=== PATIENT | male | born 1955 | race Caucasian/White ===

== ENCOUNTER 2016-08-31 11:38 | Observation (INO) | payer BC, OTHER ==
[2016-08-31] VITALS (9 sets, daily range): BP systolic 117–182; BP diastolic 57–94; PULSE 48–69; RESP 16–20; TEMP 97.5–98.2; O2SAT 94–99
[~2016-08-31] VITALS: Ht 193 cm; Wt 109.1 kg
[~2016-08-31 11:38] MED LIST: ASPI81 PO; ISOS30 PO; LEVO150T46 PO; NITR.4 SL; TOPR25TA2 PO; ZOCO80TA PO
[2016-08-31] MEDS ORDERED: SODIUM CHLORIDE 0.9% FLUSH 5 ML FLUSH IVF PRN ×2 (12:00→14:45)
[2016-08-31] MEDS ORDERED: ASPIRIN 325 MG TAB PO ONE (12:00)
[2016-08-31] MEDS ORDERED: NITROGLYCERIN 0.4 MG SL 25 TABS/BTL SL ONE (12:00)
--- NOTE | 2016-08-31 12:03 | PD ---
HPI Chief Complaint: Chest Pain Time Seen by Provider: 11:59 Travel History International Travel<30 days: No Contact w/Intl Traveler<30days: No Traveled to known affect area: No History of Present Illness HPI 61-year-old male that presents to the ED for evaluation of chest pain for over one hour. Per patient the pain is constant but comes and goes. Per patient gets to be severe 7 out of 10. Per patient and just some shortness of breath. Per patient he is also diaphoretic. He has a history of AZ in the past with 2 stents. Patient states that he takes an aspirin every day. Patient follows with student financial services counselor Dr. Rivera. States that the last time he had any stenting done was in 2011. States that he did go to [place] about a month ago but has had no problems since. Per patient he had to work extra at this weekend and yesterday he was feeling weak and tired because of the extra work and today he woke up with dizziness feeling lightheaded. Per patient he continued to work even though he felt dizzy and never passed out or did have any neurological deficits until about an hour ago when he developed a severe chest pain. Per patient feels similar to his prior events. He has not taken anything for this. He has no allergies to medication. Pain does not radiate. Pain stays mainly in the mid chest. He does state having some shortness of breath. States that he has a history of blood pressure problems. PFSH Past Medical History Cancer: No Cardiac Catheterization: Yes Cardiovascular Problems: Yes (AZ in 2006 & 2013) High Cholesterol: Yes Diabetes: No Diminished Hearing: No Glaucoma: No Hepatitis: No Hiatal Hernia: No Hypertension: Yes Respiratory: Yes (PNEUMONIA 2005) Thyroid Disease: Yes Past Surgical History Abdominal Surgery: Yes (APPENDECTOMY) Pacemaker: No Thoracic Surgery: Yes (ANGIOPLASTY WITH STENT) Other Surgery: Yes Social History Alcohol Use: Yes ([employer]) Tobacco Use: Yes (1 PK/DAY) Substance Use: No Allergies-Medications (Allergen,Severity, Reaction): Coded Allergies: No Known Allergies (Verified , 08/31/16) Reported Meds & Prescriptions Reported Meds & Active Scripts Active Reported Levothyroxine (Levothyroxine Sodium) 175 Mcg Tab 175 Mcg PO SUTUWETHFRSA Take 1 tablet daily except on Mondays Doxazosin (Doxazosin Mesylate) 1 Mg Tab 1 Mg PO DAILY Prozac (Fluoxetine HCl) 20 Mg Cap 20 Mg PO DAILY Pantoprazole (Pantoprazole Sodium) 40 Mg Tab 40 Mg PO DAILY Aspirin 81 Mg Tabdr 81 Mg PO HS Review of Systems General / Constitutional: No: Fever, Chills, Weight Gain, Weight Loss, Other Eyes: No: Diploplia, Blurred Vision, Photophobia, Drainage, Redness, Foreign Body Sensation, Pain, Tearing, Blind Spots, Visual changes, Blindness, Other HENT: No: Headaches, Vertigo, Lightheadedness, Sore Throat, Rhinitis, Rhinorrhea, Congestion, Nosebleed, Neck Stiffness, Neck Pain, Masses, Gingival Bleeding, Dental Difficulties, Ear Discharge, Earache, Other Cardiovascular: Positive: Chest Pain or Discomfort, Diaphoresis, No: Palpitations, Irregular Rhythm, Tachycardia, Syncope, Dyspnea on exertion, Varicosities, Edema, Cyanosis, Varicosities, Phlebitis, Claudication, Other Respiratory: Positive: Shortness of Breath, No: Cough, Wheezing, Sneezing, Orthopnea, Hemoptysis, Stridor, Night Sweats, Pleuritic Pain, Other Gastrointestinal: No: Nausea, Vomiting, Diarrhea, Abdominal Pain, Hematemesis, Hematochezia, Constipation, Changes in Bowel Habits, Indigestion, Dysphagia, Loss of Appetite, Other Genitourinary: No: Urgency, Frequency, Dysuria, Nocturia, Hematuria, Decreased Urinary Output, Oliguria, Hesitancy, Dribbling, Incontinence, Pelvic Pain, Flank Pain, Dyspareunia, Discharge, Dysmenorrhea, Menorrhagia, Metorrhagia, Vaginal Bleeding, Other Musculoskeletal: No: Myalgias, Arthralgias, Limited ROM, Weakness, Cramping, Edema, Pain, Atrophy, Other Skin: No Rash, No Itching, No Dryness, No Lumps, No Hives, No Change in Pigmentation, No Change in nails, No Alopecia, No Lesions, No Breast Lumps, No Breast Tenderness, No Breast Swelling, No Other Neurologic: Positive: Dizziness, No: Weakness, Syncope, Focal Abnormalities, Coordination Problem, Tremor, Ataxia, Headache, Change in Mentation, Slurred Speech, Paresthesia, Incontinence, Seizures, Sensory Disturbance, Other Psychiatric: No: Anxiety, Depression, Suicidal Ideations, Disorder of Thought, Mood Disorder, Substance Abuse, Homicidal Ideation, Other Endocrine: No: Heat Intolerance, Cold Intolerance, Polyuria, Polydipsia, Other Hematologic/Lymphatic: No: Easy Bruising, Lymph Node Enlargement, Other Physical Exam Narrative GENERAL: SKIN: Warm and dry. HEAD: Atraumatic. Normocephalic. EYES: Pupils equal and round. No scleral icterus. No injection or drainage. ENT: No nasal bleeding or discharge. Mucous membranes pink and moist. Tongue is midline. No uvula deviation. NECK: Trachea midline. No JVD. CARDIOVASCULAR: Regular rate and rhythm. No murmurs, S3, S4. RESPIRATORY: No accessory muscle use. Clear to auscultation. Breath sounds equal bilaterally. GASTROINTESTINAL: Abdomen soft, non-tender, nondistended. Hepatic and splenic margins not palpable. MUSCULOSKELETAL: Extremities without clubbing, cyanosis, or edema. No obvious deformities. Full range of motion of the upper and lower extremities bilaterally. 2+ pulses bilaterally. NEUROLOGICAL: Awake and alert. No obvious cranial nerve deficits. Motor grossly within normal limits. Five out of 5 muscle strength in the arms and legs. Normal speech. PSYCHIATRIC: Appropriate mood and affect; insight and judgment normal. Data Data Last Documented VS Vital Signs Date Time Temp Pulse Resp B/P Pulse Ox O2 Delivery O2 Flow Rate FiO2 08/31/16 12:05 95 Room Air 08/31/16 11:55 18 08/31/16 11:53 63 182/82 166/75 08/31/16 11:41 97.8 Orders Electrocardiogram (08/31/16 11:46) Basic Metabolic Panel (Bmp) (08/31/16 11:46) Ckmb (Isoenzyme) Profile (08/31/16 11:46) Complete Blood Count With Diff (08/31/16 11:46) Magnesium (Mg) (08/31/16 11:46) Prothrombin Time / Inr (Pt) (08/31/16 11:46) Act Partial Throm Time (Ptt) (08/31/16 11:46) Troponin I (08/31/16 11:46) Chest, Single Ap (08/31/16 11:46) Ecg Monitoring (08/31/16 11:46) Bilateral Bp Monitoring (08/31/16 11:46) Iv Access Insert/Monitor (08/31/16 11:46) Oximetry (08/31/16 11:46) Oxygen Administration (08/31/16 11:46) Aspirin (Aspirin) (08/31/16 12:00) Sodium Chloride 0.9% Flush (Ns Flush) (08/31/16 12:00) Nitroglycerin Sl (Nitrostat Sl) (08/31/16 12:00) Ondansetron Inj (Zofran Inj) (08/31/16 12:15) CKMB (08/31/16 12:02) CKMB% (08/31/16 12:02) Ct Brain W/O Iv Contrast(Rout) (08/31/16 ) Admit Order (Ed Use Only) (08/31/16 13:54) Labs Laboratory Tests Test 08/31/16 12:02 White Blood Count 6.5 TH/MM3 Red Blood Count 5.52 MIL/MM3 Hemoglobin 16.8 GM/DL Hematocrit 47.4 % Mean Corpuscular Volume 85.9 FL Mean Corpuscular Hemoglobin 30.4 PG Mean Corpuscular Hemoglobin 35.4 % Concent Red Cell Distribution Width 13.1 % Platelet Count 159 TH/MM3 Mean Platelet Volume 9.0 FL Neutrophils (%) (Auto) 53.7 % Lymphocytes (%) (Auto) 31.8 % Monocytes (%) (Auto) 10.6 % Eosinophils (%) (Auto) 2.7 % Basophils (%) (Auto) 1.2 % Neutrophils # (Auto) 3.5 TH/MM3 Lymphocytes # (Auto) 2.1 TH/MM3 Monocytes # (Auto) 0.7 TH/MM3 Eosinophils # (Auto) 0.2 TH/MM3 Basophils # (Auto) 0.1 TH/MM3 CBC Comment DIFF FINAL Differential Comment Prothrombin Time 10.5 SEC Prothromb Time International 1.0 RATIO Ratio Activated Partial 29.1 SEC Thromboplast Time Sodium Level 139 MEQ/L Potassium Level 4.1 MEQ/L Chloride Level 108 MEQ/L Carbon Dioxide Level 25.6 MEQ/L Anion Gap 5 MEQ/L Blood Urea Nitrogen 14 MG/DL Creatinine 1.12 MG/DL Estimat Glomerular Filtration 67 ML/MIN Rate Random Glucose 135 MG/DL Calcium Level 8.4 MG/DL Magnesium Level 2.2 MG/DL Total Creatine Kinase 151 U/L Creatine Kinase MB 1.6 NG/ML Troponin I LESS THAN 0.02 NG/ML MDM Medical Decision Making Medical Screen Exam Complete: Yes Emergency Medical Condition: Yes Medical Record Reviewed: Yes Interpretation(s) CBC & BMP Diagram 08/31/16 12:[address] 08/31/16 0000 Signed Impressions: Service Date/Time: Wednesday, August 31, 2016 13:26 - CONCLUSION: No acute intracranial disease. James Leal MD EKG shows sinus rhythm with no sign of acute ischemia or arrhythmia but by me and attending. Troponin and CK-MB negative. Differential Diagnosis Chest pain versus a typical chest pain versus cardiac chest pain versus coronary artery disease versus costochondritis versus pneumonia versus pneumothorax Narrative Course 61-year-old male that presents to the ED for evaluation of chest pain. Patient was properly examined and was found to have signs and symptoms consistent with appears to be possible cardiac chest pain. Initial EKG did not show any sign of ST elevation or acute changes that I could tell. My attending Dr Flores also evaluated this and agrees. Labs and imaging were ordered. Labs and imaging were essentially unremarkable. CT of the head was done as patient was complaining some dizziness. CT was negative for this. Patient does have a history of significant heart disease. Father was present at the time and she also states the patient does have also history of depression and anxiety and apparently his been under a lot of stress. Patient states that his chest pain has improved with the nitroglycerin. At this time I do recommend admission to the chest pain center. I discussed the case with my attending Dr. Flores who was made aware of all findings and agrees to admission. Daughter and patient agreed to the admission. Procedures EKG Prior to Arrival: No Diagnosis Primary Impression: Chest pain in adult Admitting Information Admitting Physician Requests: Schuyler Zaidi Aug 31, 2016 12:03
[2016-08-31 12:14] LABS: AUTOMATED NEUTROPHIL # 3.5 TH/MM3 (1.8-7.7); BASOPHIL # 0.1 TH/MM3 (0-0.2); BASOPHIL % 1.2 % (0.0-2.0); EOSINOPHIL # 0.2 TH/MM3 (0-0.4); EOSINOPHIL % 2.7 % (0.0-4.0); HEMATOCRIT 47.4 % (39.0-51.0); HEMO FLAGS DIFF FINAL; LYMPH % 31.8 % (9.0-44.0); LYMPHOCYTE # 2.1 TH/MM3 (1.0-4.8); MEAN CELL VOLUME 85.9 FL (80.0-100.0); MEAN CORPUSCULAR HEMOGLOBIN 30.4 PG (27.0-34.0); MEAN CORPUSCULAR HGB CONC 35.4 % (32.0-36.0); MONO % 10.6 % (0.0-8.0); NEUT % 53.7 % (16.0-70.0); PLATELET COUNT 159 TH/MM3 (150-450); RED BLOOD COUNT 5.52 MIL/MM3 (4.50-5.90); RED CELL DISTRIBUTION WIDTH 13.1 % (11.6-17.2); WHITE BLOOD COUNT 6.5 TH/MM3 (4.0-11.0)
[2016-08-31] MEDS ORDERED: ONDANSETRON HCL 4 MG/2 ML VIAL IV PUSH ONE (12:15)
[2016-08-31 12:31] LABS: APTT (PATIENT) 29.1 SEC (24.3-30.1); PROTHROMBIN TIME - PATIENT 10.5 SEC (9.8-11.6)
[2016-08-31 12:39] LABS: CREATINE KINASE 151 U/L (39-308)
[2016-08-31 12:52] LABS: CKMB 1.6 NG/ML (0.5-3.6)
[2016-08-31 12:54] LABS: ANION GAP 5 MEQ/L (5-15); BICARBONATE 25.6 MEQ/L (21.0-32.0); BLOOD UREA NITROGEN 14 MG/DL (7-18); CHLORIDE 108 MEQ/L (98-107); GLOMERULAR FILTRATION RATE 67 ML/MIN (>89); MAGNESIUM 2.2 MG/DL (1.5-2.5); POTASSIUM 4.1 MEQ/L (3.5-5.1); SODIUM (NA) 139 MEQ/L (136-145)
[2016-08-31] MEDS ORDERED: PROZ20CA11 PO (13:25)
[2016-08-31] MEDS ORDERED: ASPI1TAB69 PO (13:25)
[2016-08-31] MEDS ORDERED: DOXA1TAB36 PO (13:25)
[2016-08-31] MEDS ORDERED: LEVO175T2 PO (13:25)
[2016-08-31] MEDS ORDERED: PANT40TA3 PO (13:25)
--- NOTE | 2016-08-31 13:37 | RADRPT ---
EXAM DATE/TIME: 08/31/2016 12:00 [facility] COMPARISON: No previous studies available for comparison. INDICATIONS : Chest pain, shortness of breath. MEDICAL HISTORY: Hypertension. Myocardial infarction. Smoker. SURGICAL HISTORY: Carotid stent. ENCOUNTER: Initial ACUITY: 1 day PAIN SCORE: 2/10 LOCATION: Chest midline. FINDINGS: Lungs are clear. Heart and pulmonary vascularity normal. Degenerative changes are present in thorac ic spine. CONCLUSION: Negative chest for an acute process. Emerson Segovia MD FACR on August 31, 2016 at 13:05 Board Certified Radiologist. This report was verified electronically.
--- NOTE | 2016-08-31 13:46 | RADRPT ---
EXAM DATE/TIME: 08/31/2016 13:26 [facility] COMPARISON: No previous studies available for comparison. INDICATIONS : Dizziness, chest pains RADIATION DOSE: 44.80 CTDIvol (mGy) MEDICAL HISTORY : Hypertension. Cardiovascular disease SURGICAL HISTORY : Appendectomy. ENCOUNTER: Initial ACUITY: 1 day PAIN SCALE: 0/10 LOCATION: cranial TECHNIQUE: Multiple contiguous axial images were obtained of the head. Using automated exposure control and adj ustment of the mA and/or kV according to patient size, radiation dose was kept as low as reasonably a chievable to obtain optimal diagnostic quality images. FINDINGS: CEREBRUM: The ventricles are normal for age. No evidence of midline shift, mass lesion, hemorrhage or acute in farction. No extra-axial fluid collections are seen. POSTERIOR FOSSA: The cerebellum and brainstem are intact. The 4th ventricle is midline. The cerebellopontine angle i s unremarkable. EXTRACRANIAL: The visualized portion of the orbits is intact. SKULL: The calvaria is intact. No evidence of skull fracture. CONCLUSION: No acute intracranial disease. James Leal MD on August 31, 2016 at 13:43 Board Certified Radiologist. This report was verified electronically.
[2016-08-31] MEDS ORDERED: ONDANSETRON HCL 4 MG/2 ML VIAL IV PRN (14:45)
[2016-08-31] MEDS ORDERED: ACETAMINOPHEN 500 MG CPLT PO PRN (14:45)
[2016-08-31] MEDS ORDERED: ALPRAZolam 0.25 MG TAB PO PRN (14:45)
[2016-08-31] MEDS ORDERED: cloNIDine HCL 0.1 MG TAB PO PRN (14:45)
[2016-08-31] MEDS ORDERED: ACETAMINOPHEN/HYDROcodone 325 MG/7.5 MG TAB PO PRN (14:45)
[2016-08-31] MEDS ORDERED: RESP: ALBUTEROL 2.5 MG/IPRATROPIUM 0.5 MG NEB (PRN) INH (14:45)
--- NOTE | 2016-08-31 15:05 | HHI.HP ---
[facility] Primary Care Physician Jose Cruz Bruner MD Chief Complaint Chest pain History of Present Illness This is a 61-year-old male with history of CAD with stents in 2006 and 2013 that presents to ED via private vehicle with complaint of chest pressure. This discomfort was in the center of his chest. It began around 10:00 this morning while he was at work. It lasted until going into the ER about an hour and a half later. He states that he was given subluminal nitroglycerin in the ER and at helped his discomfort. He currently has no more discomfort. Total duration time was about 2 hours. It feels similar to the discomfort he had with his stenting in the past however this discomfort was not as intense. He became diaphoretic a little before coming into the ER. He had no shortness of breath or nausea. Patient has continued to smoke. He is not taking statin medication. He states the myalgias were to intense. Denies recent illness. Denies fevers or chills. Patient has not followed up with Dr. Wood for over 2 years. He states that he believed he did not need a bleach liquor maker any longer. Review of Systems General: Patient denies fevers, chills recent, and recent travel HEENT: Patient denies headache, sore throat, difficulty swallowing. Cardiovascular: Has the chest discomfort as mentioned above. He had diaphoresis just prior to coming into the ED. Denies sensation of heart beating rapidly or irregularly. No syncope. Respiratory: Denies shortness of breath or inspirational chest discomfort. Denies coughing wheezing or hemoptysis. GI: Patient denies nausea, vomiting, diarrhea, abdominal pain, bloody stools. Musculoskeletal: Patient denies joint pain or edema. Denies calf pain or edema. Neurovascular: Patient denies numbness, tingling, weakness in extremities. Denies headache. Endocrine: Denies polyuria and polydipsia. Hematologic: Denies easy bruising. Skin: Denies rash or itching. Past Family Social History Allergies: Coded Allergies: No Known Allergies (Verified , 08/31/16) Past Medical History CAD with stents 2. First stent was in 2006 and the second stent was in 2013. History of hypertension and states that his PCP started him on doxazosin about a month ago. He takes it at night. He was on a beta trixie twice a day with his initial WI however cause bradycardia and was reduced to once a day. He states his primary care physician eventually took him off it altogether stating he no longer needed it. Hyperlipidemia but no medication secondary to myalgias. Tobacco abuse. Denies diabetes. Past Surgical History Cardiac catheterization 2 with stenting. Reported Medications Reported Meds & Active Scripts Active Reported Levothyroxine (Levothyroxine Sodium) 175 Mcg Tab 175 Mcg PO SUTUWETHFRSA Take 1 tablet daily except on Mondays Doxazosin (Doxazosin Mesylate) 1 Mg Tab 1 Mg PO DAILY Prozac (Fluoxetine HCl) 20 Mg Cap 20 Mg PO DAILY Pantoprazole (Pantoprazole Sodium) 40 Mg Tab 40 Mg PO DAILY Aspirin 81 Mg Tabdr 81 Mg PO HS Active Ordered Medications Current Medications Medications (Trade) Dose Ordered Sig/Garrick Route Start Time Stop Time Status Last Admin (NS Flush) 2 ml UNSCH PRN IVF 08/31/16 14:45 (NS Flush) 2 ml BID IVF 08/31/16 21:00 (Tylenol) 500 mg Q4H PRN PO 08/31/16 14:45 (Dunlap 7.5-325 Mg) 1 tab Q4H PRN PO 08/31/16 14:45 (Zofran Inj) 4 mg Q6H PRN IV 08/31/16 14:45 (Aspirin) 325 mg DAILY PO 09/01/16 09:00 UNV (Xanax) 0.25 mg Q8H PRN PO 08/31/16 14:45 UNV (Cardura) 1 mg DAILY PO 08/31/16 18:00 UNV (PROzac) 20 mg DAILY PO 09/01/16 09:00 UNV (Protonix) 40 mg DAILY PO 09/01/16 09:00 UNV Non-Formulary Medication 175 mcg SUTUWETHFRSA PO 09/01/16 14:45 UNV (Catapres) 0.1 mg Q4H PRN PO 08/31/16 14:45 UNV Family History Denies family history of CAD. Social History Patient continues to smoke cigarettes. He smokes about a pack a day for 35 years. He has occasional alcohol. Denies illicit drugs. He is living with his ex-. Physical Exam Vital Signs Vital Signs Date Time Temp Pulse Resp B/P Pulse Ox O2 Delivery O2 Flow Rate FiO2 08/31/16 14:33 53 18 126/68 99 Room Air 2/27/17 12:05 95 Room Air 08/31/16 11:55 18 97 Room Air 08/31/16 11:53 63 182/82 166/75 08/31/16 11:49 59 18 96 Room Air 08/31/16 11:41 97.8 69 16 178/94 95 Physical Exam GENERAL: This is a well-nourished, well-developed patient, in no apparent distress. Patient speaks in clear complete sentences. Patient is pleasant. HEENT: Head is atraumatic and normocephalic. Neck is supple without lymphadenopathy and trachea is midline. No JVD or carotid bruits. CARDIOVASCULAR: Regular rate and rhythm without murmurs, gallops, or rubs. RESPIRATORY: Clear to auscultation. Breath sounds equal bilaterally. No wheezes , rales, or rhonchi. Chest wall is nontender. No use of accessory muscles. GASTROINTESTINAL: Abdomen is nontender, nondistended. Abdomen soft. No obvious pulsatile mass or bruit. No CVA tenderness. Strong femoral pulses bilaterally. Normal bowel sounds in all quadrants. MUSCULOSKELETAL: Patient is moving upper and lower extremities freely. No calf tenderness or edema, no Homans sign. Strong pulses in upper and lower extremities. NEUROLOGICAL: Patient is alert and oriented. Cranial nerves 2-12 are grossly intact. No focal deficits and speech is clear. SKIN: No rash and turgor is normal. Laboratory Laboratory Tests Test 08/31/16 12:02 White Blood Count 6.5 Red Blood Count 5.52 Hemoglobin 16.8 Hematocrit 47.4 Mean Corpuscular Volume 85.9 Mean Corpuscular Hemoglobin 30.4 Mean Corpuscular Hemoglobin 35.4 Concent Red Cell Distribution Width 13.1 Platelet Count 159 Mean Platelet Volume 9.0 Neutrophils (%) (Auto) 53.7 Lymphocytes (%) (Auto) 31.8 Monocytes (%) (Auto) 10.6 Eosinophils (%) (Auto) 2.7 Basophils (%) (Auto) 1.2 Neutrophils # (Auto) 3.5 Lymphocytes # (Auto) 2.1 Monocytes # (Auto) 0.7 Eosinophils # (Auto) 0.2 Basophils # (Auto) 0.1 CBC Comment DIFF FINAL Differential Comment Prothrombin Time 10.5 Prothromb Time International 1.0 Ratio Activated Partial 29.1 Thromboplast Time Sodium Level 139 Potassium Level 4.1 Chloride Level 108 Carbon Dioxide Level 25.6 Anion Gap 5 Blood Urea Nitrogen 14 Creatinine 1.12 Estimat Glomerular Filtration 67 Rate Random Glucose 135 Calcium Level 8.4 Magnesium Level 2.2 Total Creatine Kinase 151 Creatine Kinase MB 1.6 Troponin I LESS THAN 0.02 Result Diagram: 08/31/16 1202 08/31/16 1202 Imaging Last [address] 08/31/16 0000 Signed Impressions: Service Date/Time: Wednesday, August 31, 2016 13:26 - CONCLUSION: No acute intracranial disease. James Leal MD Chest x-ray has no acute findings. Course Initial EKG is sinus rhythm with nonspecific lateral ST changes as well as inferior T-wave changes. Assessment and Plan Assessment and Plan * Chest pain: Patient will continue to have serial cardiac enzymes and EKGs for ruling out purposes. He will be seen by Dr. Juan Greer of cardiology and the chest pain center. He will have a Lexiscan in the morning if he rules out. He would be discharged home with instructions to follow-up with his PCP and a bleach liquor maker if his stress test were to be nonischemic. * CAD: Patient has history of CAD with 2 stents. This will be reevaluated with stress testing. * Hyperlipidemia: Patient when he discussed discussed statin therapy with his physician. He states he is unable to take the medication secondary to myalgias. * Hypertension: Patient recently began doxazosin. His blood pressure was elevated when he initially came into the ED but has improved. We'll continue to monitor. * Tobacco abuse: Patient has been counseled on the importance of smoking cessation. Patient is stable at this time. He is agreeable to this plan. Kiran Cruz Aug 31, 2016 15:05
[2016-08-31 16:32] LABS: CREATINE KINASE 141 U/L (39-308)
[2016-08-31 16:44] LABS: CKMB 1.4 NG/ML (0.5-3.6)
[2016-08-31] MEDS ORDERED: DOXAZOSIN MESYLATE 1 MG TAB PO SCH (18:00)
[2016-08-31 18:42] LABS: CREATINE KINASE 125 U/L (39-308)
[2016-08-31 18:54] LABS: CKMB 1.3 NG/ML (0.5-3.6)
[2016-08-31] MEDS: SODIUM CHLORIDE 0.9% FLUSH 5 ML FLUSH IVF SCH (20:28)
[2016-09-01 00:55] VITALS: PULSE 51
[2016-09-01 02:47] VITALS: BP 116/58; PULSE 48; RESP 18; TEMP 98.2; O2SAT 94
[2016-09-01] MEDS ORDERED: LEVOTHYROXINE SODIUM 100 MCG TAB PO SCH (06:00)
[2016-09-01] MEDS ORDERED: LEVOTHYROXINE SODIUM 75 MCG TAB PO SCH (06:00)
[2016-09-01 07:38] VITALS: BP 152/70; PULSE 51; RESP 20; TEMP 97.9; O2SAT 95
--- NOTE | 2016-09-01 07:41 | EKG ---
Date Performed: 08/31/2016 Time Performed: 11:50:44 PTAGE: 61 years EKG: Sinus rhythm PROBABLE INFERIOR MYOCARDIAL INFARCTION ABNORMAL ECG Since PREVIOUS TRACING , no significant change noted PREVIOUS TRACIN08/01/2011 23.51 DOCTOR: Kailyn Cerna Interpretating Date/Time 09/01/2016 07:40:07
--- NOTE | 2016-09-01 07:42 | EKG ---
Date Performed: 08/31/2016 Time Performed: 14:58:08 PTAGE: 61 years EKG: SINUS BRADYCARDIA INFERIOR MYOCARDIAL INFARCTION ABNORMAL ECG Since previous tracing, no si gnificant change noted NO PREVIOUS TRACING DOCTOR: Kailyn Cerna Interpretating Date/Time 09/01/2016 07:41:10
--- NOTE | 2016-09-01 07:42 | EKG ---
Date Performed: 08/31/2016 Time Performed: 17:49:38 PTAGE: 61 years EKG: SINUS BRADYCARDIA INFERIOR MYOCARDIAL INFARCTION ABNORMAL ECG Since PREVIOUS TRACING , no significant change noted PREVIOUS TRACIN08/31/2016 14.58 DOCTOR: Kailyn Cerna Interpretating Date/Time 09/01/2016 07:41:49
[2016-09-01] MEDS: SODIUM CHLORIDE 0.9% FLUSH 5 ML FLUSH IVF SCH (08:36)
[2016-09-01] MEDS ORDERED: PANTOPRAZOLE SOD 40 MG DELAYED RELEASE TAB PO SCH (09:00)
[2016-09-01] MEDS ORDERED: ASPIRIN 325 MG TAB PO SCH (09:00)
[2016-09-01] MEDS ORDERED: FLUoxetine HCL 20 MG CAP PO SCH (09:00)
[2016-09-01] MEDS ORDERED: REGADENOSON INJ 0.4 MG/5 ML SYR ONE (09:23)
--- NOTE | 2016-09-01 11:02 | RADRPT ---
EXAM DATE/TIME: 09/01/2016 09:01 [facility] COMPARISON: No previous studies available for comparison. INDICATIONS : Mid chest pain for one day. Angina. Myocardial infarction. DOSE: 35.0 mCi Tc99m Myoview at stress. 11.0 mCi Tc99m Myoview at rest. 0.4 mg Lexiscan STRESS SYMPTOMS: Dyspnea and headache. EJECTION FRACTION: 43% MEDICAL HISTORY : Cardiovascular disease. Hypertension. SURGICAL HISTORY : Coronary artery stent. ENCOUNTER: Initial ACUITY: 1 day PAIN SCALE: 5/10 LOCATION: Midsternal chest TECHNIQUE: The patient underwent pharmacologic stress with infusion of prescribed dose. Continuous ECG tracing was monitored during stress. Gated SPECT imaging was performed after stress and conventional SPECT i maging was performed at rest. The examination was performed on a SPECT/CT scanner, both attenuation and non-corrected datasets were reviewed. FINDINGS: DISTRIBUTION: The maximum perfused segment at stress is in the anterior septal wall. The chamber may be dilated PERFUSION STUDY: The pattern of perfusion at stress is within normal limits. GATED STUDY: There is intact wall motion and thickening without obvious focal hypokinetic or dyskinetic segments. CONCLUSION: The patient's ejection fraction of only 43% without any obvious ischemia or large infarcts. [facility] may be slightly dilated. RISK CATEGORY: Low (<1% Annual Mortality Rate) Derek Marshall MD on September 01, 2016 at 10:59 Board Certified Radiologist. This report was verified electronically.
--- NOTE | 2016-09-01 11:27 | HHI.DCPOC ---
Discharge Care Plan Diagnosis: (1) Chest pain (2) Hypertension (3) Hyperlipidemia (4) CAD (coronary artery disease) (5) H/O heart artery stent (6) Tobacco abuse Goals to Promote Your Health * To prevent worsening of your condition and complications * To maintain your health at the optimal level Directions to Meet Your Goals Take your medications as prescribed Follow your dietary instruction Follow activity as directed Keep your appointments as scheduled Take your immunizations and boosters as scheduled If your symptoms worsen call your PCP, if no PCP go to Urgent Care Center or Emergency Room Smoking is Dangerous to Your Health. Avoid second hand smoke Call the 24-hour hour crisis hotline for domestic abuse at Kiran Cruz Sep 01, 2016 11:27
[2016-09-01] MEDS ORDERED: NON-FORMULARY DRUG (Levothyroxine 175 MCG) PO SCH (14:45)
--- NOTE | 2016-09-01 17:00 | TR ---
Date Performed: 09/01/2016 Time Performed: 09:29:24 DOCTOR: Kailyn Cerna DRUG LIST: CLINICAL HISTORY: REASON FOR TEST: CHEST PAIN REASON FOR ENDING: OBSERVATION: CONCLUSION: Lexiscan stress test was performed under standard four minute protocol. Radionuclid e was injected one minute prior to ending the test. No electrocardiographic abormalities were present to suggest ischemia. Nuclear imaging and interpretation are pending. COMMENTS:
== END 2016-09-01 12:17 | disposition home or self-care (01) ==
LOC: NEPE 11:38 → NEDA 13:56 → NEPHCDU 15:08 → NEDA 09-01 01:00
PROVIDERS: ADMIT Internal Medicine Cardiovascular Disease; ATTEND Internal Medicine Cardiovascular Disease
DX: R07.89 Other chest pain (principal); I25.10 Atherosclerotic heart disease of native coronary artery without angina pectoris; I10 Essential (primary) hypertension; E78.5 Hyperlipidemia, unspecified; I25.2 Old myocardial infarction; R94.31 Abnormal electrocardiogram [ECG] [EKG]; E78.00 Pure hypercholesterolemia, unspecified; F17.210 Nicotine dependence, cigarettes, uncomplicated; Z87.01 Personal history of pneumonia (recurrent); Z95.5 Presence of coronary angioplasty implant and graft
CPT/HCPCS: 70450; 71010; 78452; 80048; 82550; 82552; 83735; 84484; 85025; 85610; 85730; 93005; 93017; 96374; 99285; A9502; G0378; J2405; J2785

== ENCOUNTER → 2017-01-14 | Outpatient (CLI) | payer BC ==
[~2017-01-14] MED LIST changes: +ASPI1TAB69 PO; -ASPI81 PO; +DOXA1TAB36 PO; -ISOS30 PO; -LEVO150T46 PO; +LEVO175T2 PO; -NITR.4 SL; +PANT40TA3 PO; +PROZ20CA11 PO; -TOPR25TA2 PO; -ZOCO80TA PO
[2017-01-14 09:30] LABS: BLOOD GAS BASE EXCESS -1.3 mmol/L (-2-2); BLOOD GAS CARBOXYHEMOGLOBIN 3.3 % (0-4); BLOOD GAS HCO3 23 mmol/L (22-26); BLOOD GAS METHEMOGLOBIN 1.3 % (0-2); BLOOD GAS O2 HGB SATURATION 92 % (90-100); BLOOD GAS OXYGEN CONTENT 21.3 Vol % (12.0-20.0); BLOOD GAS PCO2 36 mmHg (38-42); BLOOD GAS PO2 82 mmHg (61-120); BLOOD GAS TOTAL HGB 16.4 G/DL (12.0-16.0); TEMP CORR TO 98.6
[2017-01-14 09:31] LABS: CRITICAL VALUE NO; DRAW SITE RT RADIAL; FIO2 21 %; NUMBER OF ARTERIAL PUNCTURES 1; STAT NO; ULNAR PULSE PRESENT
--- NOTE | 2017-01-18 14:04 | RSPPFT ---
DATE OF PROCEDURE: 01/14/17 COMMENTS: The forced vital capacity, FEV1, FEV1/FVC ratio and FEF 25-75 are all normal. There is no significant improvement after bronchodilator. The residual volume is normal with a small increase in the RV/TLC ratio. IMPRESSION: This is a normal pulmonary function study. The diffusion capacity is normal when corrected for alveolar volume.
== END ==
LOC: HRSP 08:31
PROVIDERS: ATTEND Family Medicine
DX: R05 Cough (principal)
CPT/HCPCS: 36600; 82805; 94060; 94726; 94729